=== PATIENT | female | born 1975 | race Two or more races ===

== ENCOUNTER 2021-08-28 15:19 | Emergency (ER) | payer OTHER ==
[~2021-08-28] VITALS: Ht 175.3 cm; Wt 115.7 kg
[2021-08-28] MEDS ORDERED: PRILOSEC OTC20 MG PO (15:55)
== END 2021-08-28 20:27 | disposition home or self-care (01) ==
LOC: ER 15:19
DX: N93.8 Other specified abnormal uterine and vaginal bleeding (principal)

== ENCOUNTER 2021-09-26 12:30 | Inpatient (IN) | payer OTHER ==
[~2021-09-26] VITALS: Ht 175.3 cm; Wt 113.4 kg
[~2021-09-26 12:30] MED LIST: PRILOSEC OTC20 MG PO
== END 2021-09-29 12:31 | disposition home or self-care (01) | DRG 743 ==
LOC: OB/GYN 13:12
PROVIDERS: ADMIT Obstetrics & Gynecology; ATTEND Obstetrics & Gynecology
PROC: 0UT90ZZ Resection of Uterus, Open Approach (ICD-10-PCS; principal; 2021-09-26)
PROC: 0UT70ZZ Resection of Bilateral Fallopian Tubes, Open Approach (ICD-10-PCS; 2021-09-26)
PROC: 0UT20ZZ Resection of Bilateral Ovaries, Open Approach (ICD-10-PCS; 2021-09-26)
DX: D25.1 Intramural leiomyoma of uterus (principal); N80.0 Endometriosis of uterus; N72 Inflammatory disease of cervix uteri; Z20.822 Contact with and (suspected) exposure to COVID-19; N83.291 Other ovarian cyst, right side; N83.292 Other ovarian cyst, left side